=== PATIENT | male | born 1980 | race Caucasian/White ===

== ENCOUNTER 2025-03-20 00:04 | Emergency (ER) | payer OTHER ==
[~2025-03-20] VITALS: Ht 172.7 cm; Wt 72.7 kg
[2025-03-20 02:30] VITALS: TEMP 97.6
[2025-03-20 03:52] LABS: PLATELET COUNT (AUTO) 159 K/uL (150-450); RED BLOOD CELL COUNT(AUTO) 4.43 MIL/uL (4.50-5.90); RED CELL DISTRIBUTION WIDTH 13.5 % (11.5-14.5); WHITE BLOOD COUNT (AUTO) 6.5 K/uL (4.5-11.0)
[2025-03-20 04:01] LABS: CALCIUM, TOTAL 8.4 mg/dL (8.8-10.5); CREATININE 0.81 mg/dL (0.60-1.30); GLOMERULAR FILTR. RATE CALC > 60 mL/min (>60); GLUCOSE,RANDOM 105 mg/dL (70-110); SODIUM SERUM 139 mmol/L (136-145); UREA NITROGEN, BLOOD 16 mg/dL (7-18)
[2025-03-20 06:30] VITALS: BP 129/88; PULSE 74; RESP 18; O2SAT 97
[2025-03-20] MEDS: ONDANSETRON 4 MG TABLET PO ONE (06:57)
== END 2025-03-20 06:30 | disposition home or self-care (01) ==
LOC: EMS 00:21
DX: M62.831 Muscle spasm of calf (principal); F12.90 Cannabis use, unspecified, uncomplicated; R20.2 Paresthesia of skin
CPT/HCPCS: 99283; 80048; 83735; 85025; 36415; Q0162

== ENCOUNTER 2025-04-07 14:47 | Emergency (ER) | payer OTHER ==
[~2025-04-07] VITALS: Ht 170.2 cm; Wt 75.0 kg
[2025-04-07 15:04] VITALS: TEMP 98.1
[2025-04-07 18:50] LABS: PLATELET COUNT (AUTO) 160 K/uL (150-450); RED BLOOD CELL COUNT(AUTO) 4.66 MIL/uL (4.50-5.90); RED CELL DISTRIBUTION WIDTH 13.3 % (11.5-14.5); WHITE BLOOD COUNT (AUTO) 7.4 K/uL (4.5-11.0)
[2025-04-07 18:51] LABS: CALCIUM, TOTAL 8.5 mg/dL (8.8-10.5); CREATININE 0.70 mg/dL (0.60-1.30); GLOMERULAR FILTR. RATE CALC > 60 mL/min (>60); GLUCOSE,RANDOM 81 mg/dL (70-110); SODIUM SERUM 140 mmol/L (136-145); UREA NITROGEN, BLOOD 16 mg/dL (7-18)
[2025-04-07 18:56] LABS: ASPARTATE AMINOTRANSFERASE 21.0 U/L (15-37); TOTAL PROTEIN, SERUM 7.1 g/dL (6.4-8.2)
[2025-04-07] MEDS: MORPHINE SULFATE 2 MG/ML SYRINGE IVP ONE (20:26)
[2025-04-07] MEDS ORDERED: IOHEXOL 300 MG/ML 100 ML VIAL ONE (20:49)
[2025-04-07 21:10] LABS: APPEARANCE,URINE CLEAR (CLEAR); GLUCOSE, URINE (UA) NEGATIVE (NEGATIVE); LEUKOCYTE ESTERASE ,URINE NEGATIVE (NEGATIVE); NITRATE,URINE NEGATIVE (NEGATIVE); OCCULT BLOOD,URINE NEGATIVE (NEGATIVE); SPECIFIC GRAVITIY, URINE 1.034 (1.003-1.030)
[2025-04-08 00:07] VITALS: BP 110/74; PULSE 62; RESP 16; O2SAT 98
== END 2025-04-08 03:09 | disposition home or self-care (01) ==
LOC: EMS 14:47
DX: M62.838 Other muscle spasm (principal); M79.604 Pain in right leg; M79.605 Pain in left leg; K59.00 Constipation, unspecified; F12.90 Cannabis use, unspecified, uncomplicated; Z98.890 Other specified postprocedural states
CPT/HCPCS: 99285; 74177; 96374; 96375; 80048; 80076; 81003; 83690; 85025; 36415; 51701; J1200; J2270; Q9967